=== PATIENT | female | born 1985 | race Caucasian/White ===

== ENCOUNTER 2016-04-11 01:23 | Emergency (ER) | payer OTHER ==
[~2016-04-11] VITALS: Ht 165.1 cm; Wt 52.5 kg
[2016-04-11 01:35] VITALS: Ht 165.1 cm; Wt 52.5 kg
[2016-04-11 04:34] LABS: INR 1.21; PROTIME 15.4 Sec (12.2-14.2); PT RATIO 1.2
[2016-04-11 04:35] LABS: PARTIAL THROMBOPLASTIN TIME 30.4 Sec (25.0-35.0)
--- NOTE | 2016-04-11 04:36 | RADRPT ---
PROCEDURE: XR Chest. CLINICAL INDICATION: Chest pain TECHNIQUE: AP Portable chest. COMPARISON: No pertinent prior examinations were submitted for comparison. FINDINGS: The cardiomediastinal silhouette is normal. The lungs are clear. The osseous structures are unrema rkable. IMPRESSION: No acute findings. RPTAT: HIKT .Riki Lara MD, MD Date Time Electronically viewed and signed by .Riki Lara MD, MD on 04/11/2016 04:36 .T/
[2016-04-11 04:46] LABS: ALBUMIN 4.5 g/dl (3.3-4.9); POTASSIUM 4.6 mmol/L (3.5-5.1)
[2016-04-11 04:48] LABS: BILIRUBIN,INDIRECT 0.2 mg/dl (0-1.1); BILIRUBIN,TOTAL 0.2 mg/dl (0.2-1.3); CREATININE 0.59 mg/dl (0.44-1.00)
[2016-04-11 04:49] LABS: ALBUMIN/GLOBULIN RATIO 1.28; BASOPHILS % 0.6 % (0.0-2.0); CALCIUM 9.6 mg/dl (8.4-10.2); EOSINOPHILS # 0.1 10^3/ul (0.0-0.5); EOSINOPHILS % 1.1 % (0.0-7.0); HEMATOCRIT 41.6 % (37.0-47.0); LYMPHOCYTES # 2.4 10^3/ul (0.8-2.9); LYMPHOCYTES % 29.2 % (15.0-51.0); MEAN CORPUSCULAR HEMOGLOBIN 30.6 pg (29.0-33.0); MEAN CORPUSCULAR HGB CONC 33.8 g/dl (32.0-37.0); MEAN CORPUSCULAR VOLUME 90.7 fl (82.0-101.0); MEAN PLATELET VOLUME 10.2 fl (7.4-10.4); MONOCYTE # 0.8 10^3/ul (0.3-0.9); MONOCYTES % 9.3 % (0.0-11.0); NEUTROPHIL # 4.9 10^3/ul (1.6-7.5); NEUTROPHILS % 59.8 % (39.0-77.0); PLATELET COUNT 243 10^3/UL (140-440); RED BLOOD COUNT 4.58 10^6/ul (4.20-5.40); RED CELL DISTRIBUTION WIDTH 12.7 % (11.5-14.5); UNCORRECTED WBC 8.2 10^3/ul (4.8-10.8); WHITE BLOOD COUNT 8.2 10^3/ul (4.8-10.8)
[2016-04-11 04:57] LABS: CONDITION 1
[2016-04-11 05:02] LABS: TROPONIN-I 0.019 ng/ml (0.00-0.12)
[2016-04-11] MEDS ORDERED: SOD CHLORIDE 0.9% 100 ML ONE (05:36)
[2016-04-11] MEDS ORDERED: IOHEXOL 300MG/ML 150 ML BTL ONE (05:36)
--- NOTE | 2016-04-11 05:40 | ERD ---
ER Documentation Chief Complaint Date/Time DATE: 04/11/16 TIME: 05:38 Chief Complaint PALPITATIONS SINCE 6PM WITH SOB. ON XARELTO 15MG FOR BLOOD CLOT R CLAVICLE HPI This is a very pleasant 30-year-old female who comes in because of palpitations a 6 PM with some mild associated shortness of breath. She denies any chest pain. Patient is currently on Xarelto for blood clot in her right clavicular region. She is worried about a pulmonary thromboembolism. ROS All systems reviewed and are negative except as per history of present illness. Allergies Allergies: Coded Allergies: No Known Allergy (Unverified , 04/11/16) PMhx/Soc History of Surgery: Yes (R jaw surgery for TMJ) Anesthesia Reaction: No Hx Neurological Disorder: No Hx Respiratory Disorders: No Hx Cardiac Disorders: Yes (DVT in R clavicle ) Hx Psychiatric Problems: Yes (anxiety) Hx Miscellaneous Medical Probl: Yes (gallstones) Hx Alcohol Use: Yes (social drinker) Hx Substance Use: Yes (occassional marijuana) Hx Tobacco Use: No Smoking Status: Never smoker Physical Exam Vitals Vital Signs Date Time Temp Pulse Resp B/P Pulse Ox O2 Delivery O2 Flow Rate FiO2 04/11/16 01:35 98.2 68 18 171/97 100 Physical Exam Const: [] Head: Atraumatic Eyes: Normal Conjunctiva ENT: Normal External Ears, Nose and Mouth. Neck: Full range of motion..~ No meningismus. Resp: Clear to auscultation bilaterally Cardio: Regular rate and rhythm, no murmurs Abd: Soft, non tender, non distended. Normal bowel sounds Skin: No petechiae or rashes Back: No midline or flank tenderness Ext: No cyanosis, or edema Neur: Awake and alert Psych: Normal Mood and Affect Result Diagram: 04/11/16 0400 04/11/16 0400 Results 24 hrs Laboratory Tests Test 04/11/16 04:00 Activated Partial Thromboplast Time 30.4Sec Alanine Aminotransferase (ALT/SGPT) 36IU/L Albumin 4.5g/dl Albumin/Globulin Ratio 1.28 Alkaline Phosphatase 70IU/L Anion Gap 19 Aspartate Amino Transf (AST/SGOT) 25IU/L B-Type Natriuretic Peptide 94PG/ML Basophils # 0.010^3/ul Basophils % 0.6% Blood Urea Nitrogen 5mg/dl Calcium Level 9.6mg/dl Carbon Dioxide Level 28mmol/L Chloride Level 103mmol/L Creatinine 0.59mg/dl Direct Bilirubin 0.00mg/dl Eosinophils # 0.110^3/ul Eosinophils % 1.1% Globulin 3.50g/dl Glucose Level 100mg/dl Hematocrit 41.6% Hemoglobin 14.0g/dl INR International Normalized Ratio 1.21 Indirect Bilirubin 0.2mg/dl Lymphocytes # 2.410^3/ul Lymphocytes % 29.2% Mean Corpuscular Hemoglobin 30.6pg Mean Corpuscular Hemoglobin Concent 33.8g/dl Mean Corpuscular Volume 90.7fl Mean Platelet Volume 10.2fl Monocytes # 0.810^3/ul Monocytes % 9.3% Neutrophils # 4.910^3/ul Neutrophils % 59.8% Nucleated Red Blood Cells # 0.010^3/ul Nucleated Red Blood Cells % 0.0/100WBC Platelet Count 15963^3/UL Potassium Level 4.6mmol/L Prothrombin Time 15.4Sec Prothrombin Time Ratio 1.2 Red Blood Count 4.5810^6/ul Red Cell Distribution Width 12.7% Sodium Level 145mmol/L Total Bilirubin 0.2mg/dl Total Protein 8.0g/dl Troponin I 0.019ng/ml White Blood Count 8.210^3/ul Current Medications Medications (Trade) Dose Ordered Sig/Tae Route PRN Reason Start Time Stop Time Status Last Admin Dose Admin Sodium Chloride (NS) 100 ml @ ud STK-MED ONCE .ROUTE 04/11/16 05:36 04/11/16 05:37 DC Iohexol (Omnipaque 300mg/ ml) 150 ml STK-MED ONCE .ROUTE 04/11/16 05:36 04/11/16 05:37 DC Procedures/MDM EKG: Rate/Rhythm: Normal Sinus Rhythm QRS, ST, T-waves: No changes consistent w/ acute ischemia Impression: No evidence of ischemia or arrhythmia Chest X-ray 1V Interpreted by me: Soft Tissue: No acute abnormalities Bones: No acute abnormalities Mediastinum/Cardiac Silhouette/Lungs: No acute abnormalities CT of the chest is currently pending and will be addressed by my oncoming colleague. Medical decision making: This very pleasant patient comes in for shortness of breath or palpitations. I have low suspicion for pulmonary thromboembolism, however given her history of DVT the patient is being evaluated currently. She will be followed up calling. Final disposition per the oncoming doctor. Departure Diagnosis: Primary Impression: Palpitations Condition: Stable AIMEE SALGADO Apr 11, 2016 05:40
[2016-04-11 05:54] VITALS: BP 111/78; PULSE 61; RESP 16
--- NOTE | 2016-04-11 06:12 | RADRPT ---
PROCEDURE: CT pulmonary angiogram. CLINICAL INDICATION: Chest pain and shortness of breath. TECHNIQUE: CT scan of the chest and CT pulmonary angiogram was performed utilizing axial tomograp hic imaging from the thoracic inlet to the domes of the diaphragm. High-resolution thin slice coron al and sagittal imaging was obtained from the axial source images. 3-D volumetric rendered post pro cessing was performed as well. The patient was examined following the uncomplicated intravenous adm inistration of 90 cc of Omnipaque-300. The images were reviewed on a PACS workstation. The total exa m CTDI equals 21.13, 3.80 and the total exam DLP equals 166.99 mGy-cm. COMPARISON: Chest x-ray performed earlier on the same date FINDINGS: The lungs are clear. No focal airspace opacity, pleural effusion, or pneumothorax is seen. No pulm onary nodules or masses are identified. There is no abnormal interstitial thickening. The trachea a nd proximal bronchi are unremarkable. The visualized thyroid is unremarkable. The heart is grossly normal in size and configuration. The aorta demonstrates normal branching pattern. The aorta is normal in caliber and contains vascular calcifications. There is no evidence of aortic dissection. The central pulmonary arteries are sallie l in caliber. The attenuation of the central pulmonary arteries measures 277 HU. No filling defect s are identified within the proximal pulmonary arterial branches to suggest pulmonary embolism. No hilar, mediastinal, or axillary lymphadenopathy is identified. Limited evaluation of the upper abdomen is unremarkable. The osseous structures are unremarkable. IMPRESSION: 1. No CT evidence for pulmonary embolism. 2. Unremarkable CT of the chest. RPTAT: HH .Maxine Soriano MD, Date Time Electronically viewed and signed by .Maxine Soriano MD, MD on 04/11/2016 06:11 .Rosa/
== END 2016-04-11 07:14 | disposition home or self-care (01) ==
LOC: E/R 01:23
DX: R00.2 Palpitations (principal); R40.2142 Coma scale, eyes open, spontaneous, at arrival to emergency department; R40.2252 Coma scale, best verbal response, oriented, at arrival to emergency department; R40.2362 Coma scale, best motor response, obeys commands, at arrival to emergency department; R06.02 Shortness of breath; Z79.01 Long term (current) use of anticoagulants
CPT/HCPCS: 71010; 71275; 80053; 83880; 84484; 85025; 85610; 85730; 93005; Q9967; Z7610; 36415